=== PATIENT | female | born 1975 | race Caucasian/White ===

== ENCOUNTER 2025-07-20 11:32 | Outpatient (CLI) | payer BC, SELFPAY ==
[2025-07-20 15:44] LABS: Chlamydia DNA Amplified* NOT DETECTED (No Detected); GC DNA Amplified* NOT DETECTED (No Detected)
== END 2025-07-20 11:33 | disposition home or self-care (01) ==
LOC: NFLDUCREF 11:32
PROVIDERS: Visit Provider Physician Assistant Surgical
DX: N89.8 Other specified noninflammatory disorders of vagina (principal)
CPT/HCPCS: 87491; 87591